=== PATIENT | female | born 1975 | race Caucasian/White ===

== ENCOUNTER 2023-12-11 05:50 | Emergency (ER) | payer MEDICAID ==
[~2023-12-11] VITALS: Ht 172.7 cm; Wt 90.0 kg
[2023-12-11 05:59] VITALS: BP 115/68; PULSE 102; RESP 16; TEMP 98.4; O2SAT 99
== END 2023-12-11 07:51 | disposition home or self-care (01) ==
LOC: ER 05:50
DX: S81.012A Laceration without foreign body, left knee, initial encounter (principal); Z88.1 Allergy status to other antibiotic agents; Z88.6 Allergy status to analgesic agent; W01.0XXA Fall on same level from slipping, tripping and stumbling without subsequent striking against object, initial encounter; Y93.89 Activity, other specified; Y92.89 Other specified places as the place of occurrence of the external cause; Y99.8 Other external cause status
CPT/HCPCS: 12002